=== PATIENT | female | born 1970 | race Two or more races ===

== ENCOUNTER 2018-06-29 14:47 | Emergency (ER) | payer MEDICAID ==
[~2018-06-29] VITALS: Ht 162.6 cm; Wt 78.9 kg
[2018-06-29 14:52] VITALS: BP 132/83
== END 2018-06-29 15:12 | disposition home or self-care (01) ==
LOC: ER 14:53
DX: M70.21 Olecranon bursitis, right elbow (principal); Y93.89 Activity, other specified